=== PATIENT | female | born 1990 | race Caucasian/White ===

== ENCOUNTER 2021-01-08 10:30 | Emergency (ER) | payer OTHER ==
[~2021-01-08 10:30] MED LIST: METOPROLOL SUCC25 MG PO; VENTOLIN (2.5 MG/3 M INH
[2021-01-08 11:09] LABS: BASOPHIL 0.2 % (0-2); EOSINOPHIL 2.1 % (0-5); HCT 41.6 % (37.0-47.0); LYMPHOCYTE 21.7 % (15-48); MCHC 31.3 g/dL (32.0-36.0); MCV 92.9 fL (78.0-100.0); MONOCYTE 6.9 % (0-12); MPV 9.1 fL (6.0-9.5); NEUTROPHIL 68.9 % (41-80); NRBC 0; PLT 313 K/uL (150-400); RBC 4.48 M/uL (4.20-5.40); RDW 14.6 % (11.5-14.0); WBC 5.3 K/uL (4.0-10.5)
[2021-01-08 11:29] LABS: ALBUMIN 4.3 g/dL (3.4-5.0); BILIRUBIN - TOTAL 0.6 mg/dL (0.2-1.0); BUN/CREAT RATIO (CALC) 19.4 RATIO; CREATININE 0.62 mg/dL (0.51-0.95); GLOBULIN (CALCULATION) 4.9 g/dL; POTASSIUM 5.3 mmol/L (3.5-5.1); TOTAL PROTEIN 9.2 g/dL (6.4-8.2)
== END 2021-01-08 14:42 | disposition other institution (70) ==
LOC: FER 10:30
PROVIDERS: Internal Medicine
DX: S36.112D Contusion of liver, subsequent encounter (principal); J45.909 Unspecified asthma, uncomplicated; V89.2XXD Person injured in unspecified motor-vehicle accident, traffic, subsequent encounter
CPT/HCPCS: 36415; 80053; 85025